=== PATIENT | female | born 1950 | race Caucasian/White ===

== ENCOUNTER 2020-08-03 00:38 | Inpatient (IN) | payer MEDICARE ==
[~2020-08-03] VITALS: Ht 168.9 cm; Wt 70.1 kg
[2020-08-03] MEDS: [UNRECOGNIZED DRUG - REMARK] MC SCH ×3 (01:00→17:00)
[2020-08-03] MEDS ORDERED: SODIUM CHLORIDE FLUSH 10ML SYR IVF ONE (01:00)
[2020-08-03] MEDS ORDERED: PLEASE ENTER ALLERGIES MC SCH (01:00)
--- NOTE | 2020-08-03 01:30 | NUR ---
CT CALLED TO NOTIFY THEM THAT PATIENT WAS READY FOR CTA WITH 18G IN L HAND. I WAS NOTIFIED THAT IV CANNOT BE IN HAND. 2ND IV PLACED IN R AC. PATIENT EDUCATED ON REASON FOR ADDITIONAL IV. DENIES CP. NO SOB. VS REMAIN STABLE. WILL CONTINUE TO MONITOR.
[2020-08-03 01:46] LABS: BASOPHILS % (AUTO) 1 % (0-1); EOSINOPHILS % (AUTO) 2 % (1-7); LYMPHOCYTES % (AUTO) 30 % (22-44); MEAN CORPUSCULAR HEMOGLOBIN 30.1 pg (27.0-34.8); MEAN CORPUSCULAR HGB CONC 33.5 g/dL (32.4-35.8); MONOCYTES % (AUTO) 8 % (2-9); NEUTROPHILS % (AUTO) 58 % (42-75); PLATELET COUNT 267 x10^3/uL (130-400); RED BLOOD COUNT 4.33 x10^6/uL (3.82-5.3); RED CELL DISTRIBUTION WIDTH 14.3 % (9.6-15.2)
[2020-08-03] MEDS ORDERED: OMNIPAQUE 350 MG/ML, 75ML BOTTLE ONE (01:51)
[2020-08-03] MEDS ORDERED: HEPARIN 25,000 UNITS/250ML PMX 250 ML ONE (01:51)
[2020-08-03 01:53] LABS: ALANINE AMINOTRANSFERASE 43 U/L (12-78); ALBUMIN 3.3 g/dL (3.4-5.0); ANION GAP 2 mmol/L (5-15); CALCIUM 8.7 mg/dL (8.5-10.1); CHLORIDE 113 mmol/L (98-107); CREATININE 0.75 mg/dL (0.55-1.02); MD NO
[2020-08-03 01:56] LABS: INTERNATIONAL NORMALIZED RATIO 0.99 (0.93-1.1); PROTHROMBIN TIME 10.6 Seconds (9.6-11.5)
[2020-08-03 01:57] LABS: ALKALINE PHOSPHATASE 82 U/L (45-117); BILIRUBIN,TOTAL 0.3 mg/dL (0.2-1.0); TOTAL PROTEIN 5.9 g/dL (6.4-8.2)
[2020-08-03] MEDS ORDERED: HEPARIN 5,000 UNITS/ML, 1ML IV ONE ×2 (02:00→09:00)
[2020-08-03] MEDS ORDERED: HEPARIN 25,000 UNITS/250ML PMX 250 ML IV PRN ×2 (02:00→09:00)
[2020-08-03] MEDS ORDERED: LAMO25TB2 PO (02:25)
[2020-08-03] MEDS ORDERED: RIZA10TA20 PO (02:25)
[2020-08-03] MEDS ORDERED: ZOLM5TAB8 PO (02:25)
--- NOTE | 2020-08-03 02:25 | NUR ---
Break RN: Heparin gtt started. patient states having chest pressure again. MD aware. orders made.
[2020-08-03] MEDS ORDERED: NITROGLYCERIN 0.4 MG BOTTLE (25 TABS) SL PRN (02:30)
[2020-08-03] MEDS ORDERED: NITROGLYCERIN OINT 2%, 1GM TP ONE ×2 (02:30)
[2020-08-03] MEDS ORDERED: LABETALOL 5MG/ML, 20ML IVPush PRN (02:30)
[2020-08-03] MEDS ORDERED: NITROGLYCERIN 0.4 MG/SPRAY SL PRN (02:30)
[2020-08-03] MEDS ORDERED: ONDANSETRON 2MG/ML, 2ML IVPush ONE (02:30)
[2020-08-03] MEDS ORDERED: DOCUSATE 100 MG CAPSULE PO PRN (02:30)
[2020-08-03] MEDS ORDERED: MORPHINE SULFATE 4 MG/ML, 1ML ONE ×3 (02:31→15:10)
[2020-08-03] MEDS ORDERED: ONDANSETRON 2MG/ML, 2ML ONE (02:31)
[2020-08-03] MEDS: MORPHINE SULFATE 4 MG/ML, 1ML IVPush PRN ×3 (02:39→15:16)
--- NOTE | 2020-08-03 02:40 | NUR ---
seen and examined by Dr. Tilley ( hospitalist ). patient updated for plan of care. repeat EKG done.
[2020-08-03] MEDS ORDERED: NITROGLYCERIN SINGLE TAB 0.4 MG SL ONE (02:57)
--- NOTE | 2020-08-03 03:05 | NUR ---
PATIENT C/O OF CONTINUED CHEST PAIN RADIATING TO L NECK 01/13 AFTER NITRO PASTE AND 4MG MORPHINE ADMINISTERED BY PREVIOUS RN. DR. CAVAZOS NOTIFIED IMMEDIATELY DUE TO UNABLE TO REACH ADMITTING PROVIDER AND 4MG MORPHINE AND ANOTHER EKG VERBALLY ORDERED BY THIS MD. THESE WERE GIVEN. ANOTHER ATTEMPT TO CALL ADMITTING PROVIDER ATTEMPTED AND UNABLE TO REACH. WILL CONTINUE TO MONITOR
[2020-08-03 03:08] LABS: CHOL/HDL RATIO 2.3; LDL/HDL RATIO 1.2 (0.5-3.0)
--- NOTE | 2020-08-03 03:28 | NUR ---
I ATTEMPTED TO CONTACT ADMITTING PROVIDER, DR. ONTIVEROS, AT THIS TIME TO NOTIFY HER OF RECURRENT CHEST PAIN WITH TREATMENT. PATIENT NOW STATES CP HAS SUBSIDED AFTER 2ND DOSE OF MORPHINE. VS REMAIN STABLE ON 2L VIA NC. WILL CONTINUE TO CLOSELY MONITOR. HEPARIN GTT INFUSING PER ORDER
--- NOTE | 2020-08-03 03:36 | NUR ---
JUST SPOKE WITH DR. ONTIVEROS AND NOTIFIED HER OF PATIENT'S RECENT RECURRENT C/O CP AND TREATMENT AND EKG AND THAT VS REMAIN STABLE AND CP HAS SUBSIDED. NO FURTHER ORDERS AT THIS TIME. WILL CONTINUE TO MONITOR. PATIENT REMAINS NPO. LAST MEAL AT 08/02 AND LAST SIP OF WATER WAS PRIOR TO TRANSFER FROM [facility]
--- NOTE | 2020-08-03 04:30 | NUR ---
PATIENT DENIES CP AT THIS TIME. VS REMAIN STABLE ON 2L VIA NC. NO FURTHER NEEDS AT THIS TIME. WILL CONTINUE TO MONITOR.
--- NOTE | 2020-08-03 05:18 | NUR ---
ADDITIONAL EDUCATED PROVIDED TO PATIENT ABOUT HEPARIN GTT. SHE ACKNOWLEDGED EDUCATION
--- NOTE | 2020-08-03 05:50 | NUR ---
patient transferred to hospital bed. heparin infusing per order. will continue to monitor
--- NOTE | 2020-08-03 06:03 | NUR ---
dr. bo called d/t patient now c/o migraine and requesting home medications she takes for these. om NAD. also, to notify her of elevated troponin. left VM
--- NOTE | 2020-08-03 06:45 | NUR ---
DR. SMILEY CONTACTED TO NOTIFY OF ELEVATED TROPONIN. NO CALL BACK FROM DR. ONTIVEROS FROM CALL EARLIER. ALSO, VRBO TELEPHONE ORDER RECEIVED FROM THIS PROVIDER AND I WILL PLACE. DR. SMILEY ALSO RECOMMENDS TO REMOVE NITRO PASTE IF MIRGRAINE PERSISTS. WILL CONTINUE TO MONITOR.
[2020-08-03] MEDS ORDERED: ACETAMINOPHEN 500 MG TABLET PO ONE (07:00)
--- NOTE | 2020-08-03 07:10 | NUR ---
REPORT GIVEN TO CRISTELA HUIZAR
--- NOTE | 2020-08-03 07:10 | NUR ---
REPORT GIVEN TO CRISTELA HUIZAR
[2020-08-03] MEDS ORDERED: ACETAMINOPHEN 500 MG TABLET ONE (07:22)
--- NOTE | 2020-08-03 07:25 | NUR ---
[facility] RPT REC'D AND ASSUMED PT CARE. HEP GTT INFUSING AT 800UNITS/HR. PT VSS, AND DENIES CP AT THIS TIME. PT DOES C/O "MIGRAINE WHITFIELD" AND IS REQUESTING HER MIGRAINE WHITFIELD MEDICATION. MD WAS CONTACTED BY NIGHT RN AND MD DID NOT WANT TO GIVE PT MIGRAINE MED STATING THAT IT COULD CONTRIBUTE TO CP. TYLENOL WAS ORDERED. PT VERBALIZED THAT TYLENOL DOES NOT HELP BUT SAID SHE WOULD TRY IT. PT OOB AND AMBULATED TO BATHROOM WITH STEADY GAIT. [employer]ODUCTS PROVIDED AND PT PERFORMED ADL'S INDEPENDENTLY. PT RTD TO BED W/O INCIDENT
[2020-08-03 08:50] VITALS: BP 121/77
[2020-08-03] MEDS: SODIUM CHLORIDE FLUSH 10ML SYR IVF SCH ×2 (09:00→21:50)
[2020-08-03] MEDS ORDERED: HEPARIN 5,000 UNITS/ML, 1ML IV PRN (09:00)
--- NOTE | 2020-08-03 09:00 | NUR ---
DR BARRY TO CATH PATIENT TODAY AT APPROX 1500. PT UPDATED AND QUESTIONS ANSWERED.
[2020-08-03] MEDS ORDERED: HEPARIN 5,000 UNITS/ML, 1ML ONE (09:34)
--- NOTE | 2020-08-03 09:45 | NUR ---
DR SZYMANSKI AT BEDSIDE. POC DISCUSSED AND QUESTIONS ANSWERED.
[2020-08-03] MEDS ORDERED: LISINOPRIL 5 MG TABLET PO SCH (10:00)
[2020-08-03] MEDS ORDERED: LISINOPRIL 5 MG TABLET ONE (11:48)
--- NOTE | 2020-08-03 11:54 | NUR ---
PT REFUSING LISINIPRIL, STATES THAT IN THE PAST SHE TOOK CANDE INHIBITORS FOR HER MIGRAINES AND THEY MADE THE MIGRAINES WORSE. DISCUSSED WITH DR SZYMANSKI, VERBAL ORDER REC'D TO D/C MEDICATION. PT INFORMED
--- NOTE | 2020-08-03 12:00 | NUR ---
assumed care of pt. report from Muna HUIZAR. pt here as a transfer from [facility] for evaluation of chest pain after skiing yesterday and elevated troponin today. pt is currently resting on hospital bed with heparin infusion running, and is on her cell phone lights have been dimmed for comfort as pt is c/o WHITFIELD. pt has been updated on POC and is to go to labor law professor at 1500 today. pt vahe denies CP. pt updated on POC tri-color form has been initiated by previous RN no family currently at bedside
--- NOTE | 2020-08-03 13:31 | NUR ---
no changes. pt resting in position of comfort. awaiting to go to blood bank laboratory professional
--- NOTE | 2020-08-03 14:01 | NUR ---
pt has made a request to take he own migraine medication. call placed to hospitalist. awaiting return call
--- NOTE | 2020-08-03 14:05 | NUR ---
call returned by Dr. Serna, orders recieved
--- NOTE | 2020-08-03 14:40 | NUR ---
pt updated on POC. pt advised per MD that her migriang medication may be contributing to her cardiac condition and pt advised not to take it. pt verbalized understanding pt agrees to alternative pain relief medications
[2020-08-03] MEDS ORDERED: ACETAMINOPHEN 500 MG TABLET PO PRN (15:30)
--- NOTE | 2020-08-03 15:30 | NUR ---
pt resting on bed in position of comfort, wathcing TV. at bedside pt has been medicated per order. updated on POC awaiting to go to screedman/laborer. heparin infusing
--- NOTE | 2020-08-03 16:06 | NUR ---
no changes. lab results pending for heparin infusion
--- NOTE | 2020-08-03 16:20 | NUR ---
pt cath has been delayed. pt updated on POC. pt expressing great frustration at the curretnly situation. attempted to calm pt and explain POC. pt angry and states that she is thirsy and wants water now. explained to pt that she is currently NPO and the risk associated with sedation if she does nto remian NPO. pt states that she will go to another hospital if she kevyn not get her cath soon. again explained POC to pt. pt vrebalized understanding. SO at bedside
[2020-08-03] MEDS ORDERED: FENTANYL PF 100 MCG/2ML ONE (17:06)
[2020-08-03] MEDS ORDERED: TICAGRELOR 90 MG TABLET ONE (17:06)
[2020-08-03] MEDS ORDERED: MIDAZOLAM 1 MG/ML, 5ML ONE (17:06)
[2020-08-03] MEDS ORDERED: VERAPAMIL 2.5 MG/ML, 2ML ONE (17:07)
[2020-08-03] MEDS ORDERED: BIVALIRUDIN 250 MG ONE (17:07)
[2020-08-03] MEDS ORDERED: HEPARIN 1,000 UNITS/ML, 10ML ONE (17:07)
[2020-08-03] MEDS ORDERED: LIDOCAINE 2%, 20ML ONE (17:07)
--- NOTE | 2020-08-03 17:13 | NUR ---
report given to lab engineer staff at bedside. pt to lab engineer with lab engineer staff via hospital bed. SO at bedside
[2020-08-03] MEDS: SODIUM CHLORIDE 0.9% 1,000 ML IV SCH (17:58)
[2020-08-03] MEDS ORDERED: ATORVASTATIN 80 MG TABLET PO SCH (21:00)
[2020-08-03 21:30] VITALS: BP 104/70
[2020-08-04] MEDS: [UNRECOGNIZED DRUG - REMARK] MC SCH (01:00)
[2020-08-04 01:52] VITALS: BP 114/72
[2020-08-04] MEDS: SODIUM CHLORIDE 0.9% 1,000 ML IV SCH ×2 (02:00→07:56)
[2020-08-04] MEDS ORDERED: NITROGLYCERIN 0.4 MG BOTTLE (25 TABS) SL PRN (03:00)
[2020-08-04] MEDS ORDERED: NITROGLYCERIN 0.4 MG/SPRAY SL PRN (03:00)
[2020-08-04] MEDS ORDERED: MORPHINE SULFATE 4 MG/ML, 1ML ONE (03:03)
[2020-08-04] MEDS: MORPHINE SULFATE 4 MG/ML, 1ML IVPush PRN (03:06)
[2020-08-04] MEDS ORDERED: ASPIRIN 325 MG TABLET EC PO SCH (06:00)
[2020-08-04 06:10] LABS: BASOPHILS % (AUTO) 1 % (0-1); EOSINOPHILS % (AUTO) 2 % (1-7); LYMPHOCYTES % (AUTO) 31 % (22-44); MEAN CORPUSCULAR HEMOGLOBIN 30.3 pg (27.0-34.8); MEAN CORPUSCULAR HGB CONC 33.4 g/dL (32.4-35.8); MONOCYTES % (AUTO) 7 % (2-9); NEUTROPHILS % (AUTO) 58 % (42-75); PLATELET COUNT 223 x10^3/uL (130-400); RED BLOOD COUNT 4.43 x10^6/uL (3.82-5.3); RED CELL DISTRIBUTION WIDTH 14.5 % (9.6-15.2)
[2020-08-04 06:13] LABS: MD NO
[2020-08-04 06:16] LABS: ANION GAP 7 mmol/L (5-15); CALCIUM 8.7 mg/dL (8.5-10.1); CHLORIDE 111 mmol/L (98-107)
[2020-08-04 06:28] LABS: CREATININE 0.62 mg/dL (0.55-1.02)
[2020-08-04] MEDS ORDERED: POTASSIUM CHLORIDE 20 MEQ TAB.ER.PRT PO ONE (07:30)
[2020-08-04 08:42] LABS: TROPONIN I 0.599 ng/mL (0.000-0.045)
[2020-08-04] MEDS: SODIUM CHLORIDE FLUSH 10ML SYR IVF SCH (08:55)
[2020-08-04 09:20] VITALS: BP 126/85
[2020-08-04] MEDS ORDERED: LOSARTAN 25MG TABLET PO SCH (09:30)
[2020-08-04] MEDS ORDERED: LISINOPRIL 5 MG TABLET PO SCH (09:30)
[2020-08-04] MEDS ORDERED: CARV3.1212 PO (11:03)
[2020-08-04] MEDS ORDERED: LOSA25TA25 PO (11:03)
[2020-08-04] MEDS ORDERED: PANT40TA3 PO (11:03)
[2020-08-04] MEDS ORDERED: ACET-1600 PO (11:03)
[2020-08-04] MEDS ORDERED: ATOR40TA78 PO (11:03)
[2020-08-04] MEDS ORDERED: ASPI81TA45 PO (11:03)
[2020-08-04] MEDS ORDERED: CARVEDILOL 3.125 MG TABLET PO SCH (18:00)
[2020-08-04] MEDS ORDERED: ATORVASTATIN 40 MG TABLET PO SCH (21:00)
[2020-08-05] MEDS ORDERED: ASPIRIN 81 MG TABLET EC PO SCH (06:00)
== END 2020-08-04 13:55 | disposition home or self-care (01) | DRG 281 ==
LOC: ED 01:55 → UNDOADMIN 02:17 → EDIP 02:17 → UNDODISIN 17:16 → 5SO 18:03 → DCLOUNGE 08-04 13:31
PROVIDERS: ADMIT Family Medicine; ATTEND Internal Medicine
PROC: 4A023N7 Measurement of Cardiac Sampling and Pressure, Left Heart, Percutaneous Approach (ICD-10-PCS; principal; 2020-08-03)
PROC: B2111ZZ Fluoroscopy of Multiple Coronary Arteries using Low Osmolar Contrast (ICD-10-PCS; 2020-08-03)
PROC: B2151ZZ Fluoroscopy of Left Heart using Low Osmolar Contrast (ICD-10-PCS; 2020-08-03)
DX: I21.4 Non-ST elevation (NSTEMI) myocardial infarction (principal); I51.81 Takotsubo syndrome; G43.909 Migraine, unspecified, not intractable, without status migrainosus; Z20.822 Contact with and (suspected) exposure to COVID-19; E78.5 Hyperlipidemia, unspecified; I25.10 Atherosclerotic heart disease of native coronary artery without angina pectoris; R73.03 Prediabetes; Z79.82 Long term (current) use of aspirin; Z80.51 Family history of malignant neoplasm of kidney; Z87.891 Personal history of nicotine dependence; Z87.892 Personal history of anaphylaxis; Z88.6 Allergy status to analgesic agent; Z88.2 Allergy status to sulfonamides; Z88.8 Allergy status to other drugs, medicaments and biological substances
CPT/HCPCS: 36415; 71275; 80048; 80053; 80061; 83036; 83735; 83880; 84443; 84484; 85025; 85520; 85610; 85730; 87635; 93005; 93306; 93308; 93325; 93458; 96374; 99156; 99291; C1769; C1894; G0378; J0583; J1644; J2250; J3010; Q9967; J2270; J7030